=== PATIENT | male | born 1980 | race Caucasian/White ===

== ENCOUNTER 2017-05-06 12:35 | Emergency (ER) | payer MEDICAID ==
[2017-05-06 12:44] VITALS: RESP 16; TEMP 97.9
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
[2017-05-06 14:01] VITALS: BP 132/80; PULSE 70; O2SAT 94
== END 2017-05-06 14:00 | disposition home or self-care (01) ==
DX: S69.91XA Unspecified injury of right wrist, hand and finger(s), initial encounter (principal); W22.8XXA Striking against or struck by other objects, initial encounter; F17.200 Nicotine dependence, unspecified, uncomplicated
CPT/HCPCS: L3908

== ENCOUNTER 2017-11-15 23:52 | Emergency (ER) | payer MEDICAID ==
[2017-11-16 00:01] VITALS: BP 135/84
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
[2017-11-16] MEDS ORDERED: AZITHROMYCIN 250 MG TAB PO ONE (00:20)
== END 2017-11-16 00:44 | disposition left against medical advice (07) ==
DX: J02.9 Acute pharyngitis, unspecified (principal); A64 Unspecified sexually transmitted disease; F17.200 Nicotine dependence, unspecified, uncomplicated
CPT/HCPCS: J0696

== ENCOUNTER 2018-02-01 19:04 | Observation (INO) | payer SELFPAY ==
[2018-02-01] MEDS ORDERED: LORazepam 2 MG/ML INJ IVP ONE (19:23)
--- NOTE | 2018-02-01 19:30 | EDPHY ---
H & P Stated Complaint: Epigastric Pain, PS? Time Seen by Provider: 02/01/18 19:14 HPI/ROS: CHIEF COMPLAINT: Vomiting, scant hematemesis HISTORY OF PRESENT ILLNESS: The patient is homeless presents the emergency department with vomiting and scant hematemesis. The patient denies melena. The patient does report using Adderall yesterday which is not prescribed to him. The patient is concerned about the possibility of a blood bite on his foot. The patient denies any headache. He denies history of fall or trauma. The patient denies any additional recreational drug use. The patient does report drinking a beer earlier today. The patient reports he had been on Seroquel and Prozac in the past. He is not taking these medications in months. His prior prior care was in [place]. The patient is endorsing some paranoid delusions that bugs are crawling in his veins. REVIEW OF SYSTEMS: A comprehensive 10 point review of systems is otherwise negative aside from elements mentioned in the history of present illness. Source: Patient - Personal History Current Tetanus/Diphtheria Vaccine: Yes Tetanus Vaccine Date: 2013 - Medical/Surgical History Hx Asthma: No Hx Chronic Respiratory Disease: No Hx Diabetes: No Hx Cardiac Disease: No Hx Renal Disease: No Hx Cirrhosis: No Hx Alcoholism: No Hx HIV/AIDS: No Hx Splenectomy or Spleen Trauma: No - Social History Smoking Status: Light smoker - Physical Exam Exam: General Appearance: Disheveled male, no acute distress Eyes: Pupils equal and round no pallor or injection ENT, Mouth: Mucous membranes moist Respiratory: There are no retractions, lungs are clear to auscultation Cardiovascular: Tachycardic Gastrointestinal: Abdomen is soft and nontender, no masses, bowel sounds normal Neurological: 5/5 strength all 4 extremities Skin: Blister noted to the dorsum of the left heel, noninfected Musculoskeletal: Neck is supple nontender Extremities: symmetrical, full range of motion Psychiatric: Hyper stimulated, paranoid, formication Constitutional: Initial Vital Signs Temperature (C) 36.7 C 02/01/18 19:14 Heart Rate 111 H 02/01/18 19:14 Respiratory Rate 24 H 02/01/18 19:14 Blood Pressure 142/117 H 02/01/18 19:14 O2 Sat (%) 98 02/01/18 19:14 O2 Delivery Mode Room Air Allergies/Adverse Reactions: No Known Allergies Allergy (Unverified 02/01/18 19:31) Home Medications: Medication Instructions Recorded NK [No Known Home Meds] 02/01/18 Medical Decision Making - Diagnostics EKG Interpretation: EKG: Complete interpretation has been separately recorded in the [facility] archive. Summary impression: Sinus rhythm, rate 97, nonspecific ST T wave changes noted ED Course/Re-evaluation: The patient presents to the ED with agitation. He is homeless. The patient reports abusing methamphetamine. After arriving in the emergency department he did admit to the nurse that he injected methamphetamine intravenously earlier today. He also used 4 days ago. The patient received 1 mg of Ativan. The patient received 2 L of normal saline. The patient received 10 mg of Zyprexa. Screening laboratory studies do demonstrate a creatinine of 3.8. The patient will require admission the hospital in the setting of his acute renal failure. He has no evidence of hyperkalemia or arrhythmia. Consultation is made with the hospitalist service. The patient will be admitted to the intensive care unit. The patient is noted to have an elevated CPK of 3000. Differential Diagnosis: Differential diagnosis considered includes rhabdomyolysis, hyperkalemia, renal failure, serotonin syndrome, methamphetamine intoxication Critical Care Time: Critical care time exclusive of procedures and exclusive of the PA's time was 35 minutes, performed by myself, Yadiel Castaneda MD. The patient presents to the ED with psychosis from methamphetamine, tachycardia, mild rhabdomyolysis, mild agitation and acute renal failure. The patient required IV fluid rehydration. He required IV Ativan and Zyprexa for his agitation and delusions. He will require admission to the intensive care unit for further stabilization - Data Points Laboratory Results: Laboratory Results 02/01/18 19:10 02/01/18 19:10 02/01/18 02/01/18 02/01/18 19:10 19:10 19:01 WBC 14.39 10^3/uL H 10^3/uL (3.80-9.50) RBC 5.92 10^6/uL 10^6/uL (4.40-6.38) Hgb 17.1 g/dL g/dL (13.7-17.5) Hct 48.5 % % (40.0-51.0) MCV 81.9 fL fL (81.5-99.8) MCH 28.9 pg pg (27.9-34.1) MCHC 35.3 g/dL g/dL (32.4-36.7) RDW 14.0 % % (11.5-15.2) Plt Count 235 10^3/uL 10^3/uL (150-400) MPV 11.9 fL H fL (8.7-11.7) Neut % (Auto) 77.8 % H % (39.3-74.2) Lymph % (Auto) 17.0 % % (15.0-45.0) [place] % (Auto) 4.4 % L % (4.5-13.0) Eos % (Auto) 0.1 % L % (0.6-7.6) Baso % (Auto) 0.2 % L % (0.3-1.7) Nucleat RBC Rel Count 0.0 % % (0.0-0.2) Absolute Neuts (auto) 11.20 10^3/uL H 10^3/uL (1.70-6.50) Absolute Lymphs (auto) 2.45 10^3/uL 10^3/uL (1.00-3.00) Absolute Monos (auto) 0.63 10^3/uL 10^3/uL (0.30-0.80) Absolute Eos (auto) 0.01 10^3/uL L 10^3/uL (0.03-0.40) Absolute Basos (auto) 0.03 10^3/uL 10^3/uL (0.02-0.10) Absolute Nucleated RBC 0.00 10^3/uL 10^3/uL (0-0.01) Immature Gran % 0.5 % % (0.0-1.1) Immature Gran # 0.07 10^3/uL 10^3/uL (0.00-0.10) Sodium 138 mEq/L mEq/L (135-145) Potassium 3.9 mEq/L mEq/L (3.3-5.0) Chloride 89 mEq/L L mEq/L (97-110) Carbon Dioxide 18 mEq/l L mEq/l (22-31) Anion Gap 31 mEq/L H mEq/L (8-16) BUN 67 mg/dL H mg/dL (7-23) Creatinine 3.8 mg/dL H mg/dL (0.7-1.3) Estimated GFR 18 Glucose 152 mg/dL H mg/dL (70-100) Calcium 10.3 mg/dL mg/dL (8.5-10.4) Creatine Kinase 3199 IU/L H IU/L (0-224) CK-MB (CK-2) Fraction 19.70 ng/mL H ng/mL (0.00-4.55) CK-MB (CK-2) % 0.6 % % (0.0-4.0) Creatine Kinase Interp NEGATIVE (NEGATIVE) Medications Given: Discontinued Medications Sodium Chloride (Ns) 1,000 mls @ 0 mls/hr IV EDNOW ONE; Wide Open PRN Reason: Protocol Stop: 02/01/18 19:40 Last Admin: 02/01/18 19:45 Dose: 1,000 mls Sodium Chloride (Ns) 1,000 mls @ 0 mls/hr IV EDNOW ONE; Wide Open PRN Reason: Protocol Stop: 02/01/18 19:40 Last Admin: 02/01/18 20:10 Dose: 1,000 mls Lorazepam (Ativan Injection) 1 mg IVP EDNOW ONE Stop: 02/01/18 19:24 Last Admin: 02/01/18 19:37 Dose: 1 mg Olanzapine (Zyprexa Zydis) 10 mg PO EDNOW ONE Stop: 02/01/18 20:05 Last Admin: 02/01/18 20:12 Dose: 10 mg Departure - Departure Disposition: [facility] Inpatient Acute Clinical Impression: Acute renal failure, Methamphetamine abuse, Drug-induced psychotic disorder, Rhabdomyolysis Condition: Fair
[2018-02-01 19:33] LABS: PLATELET COUNT 235 10^3/uL (150-400)
[2018-02-01] MEDS ORDERED: NS 1,000 ML IV ONE ×2 (19:39)
[2018-02-01] MEDS ORDERED: OLANZapine DISINTEGR 10 MG TAB PO ONE (20:04)
--- NOTE | 2018-02-01 20:16 | CPEKG ---
Heart Rate: 97 RR Interval: 619 P-R Interval: 140 QRSD Interval: 98 QT Interval: 364 QTC Interval: 463 P [place]: 75 QRS [place]: 100 T Wave [place]: -31 EKG Severity - ABNORMAL ECG - EKG Impression: SINUS RHYTHM EKG Impression: PROBABLE LEFT ATRIAL ABNORMALITY EKG Impression: NONSPECIFIC T ABNORMALITIES, INFERIOR LEADS EKG Impression: INCOMPLETE RIGHT BUNDLE BRANCH BLOCK EKG Impression: RIGHT AXIS DEVIATION Electronically Signed By: Edwin Meehan 02-Feb-2018 12:15:03
[2018-02-01 20:37] LABS: CREATINE KINASE 3199 IU/L (0-224)
[2018-02-01] MEDS ORDERED: ONDANSETRON DISINTEGRATING 4 MG TAB PO PRN (20:48)
[2018-02-01] MEDS ORDERED: ONDANSETRON 4 MG/2 ML VIAL IVP PRN (20:48)
[2018-02-01] MEDS ORDERED: ACETAMINOPHEN 325 MG TAB PO PRN (20:48)
[2018-02-01] MEDS ORDERED: HALOPERIDOL LACT 5 MG/ML INJ IVP PRN (20:49)
[2018-02-01] MEDS ORDERED: LORazepam 2 MG/ML INJ IVP PRN (20:49)
[2018-02-01] MEDS ORDERED: OLANZapine DISINTEGR 5 MG TAB PO PRN (22:24)
[2018-02-01] MEDS ORDERED: NS 1,000 ML IV SCH (22:30)
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
[2018-02-02] MEDS ORDERED: CETIRIZINE 10 MG TAB PO SCH (09:45)
[2018-02-02 09:51] LABS: PLATELET COUNT 141 10^3/uL (150-400)
[2018-02-02] MEDS ORDERED: PANTOPRAZOLE SODIUM 40 MG TAB PO SCH (10:00)
[2018-02-02 10:13] LABS: CREATINE KINASE 2231 IU/L (0-224)
[2018-02-02 11:44] VITALS: BP 108/68
--- NOTE | 2018-02-02 14:07 | PDDCSUM ---
Discharge Summary Discharge Summary: 34 yo male who was admitted for acute encephalopathy, dehydration, SOLE following Meth Intoxication. He was admitted into the SDU. He was given IVF and appropriate medical mgmt. He was improving in the morning of discharge but still with e/o of dehydration. IVF were continued. He requested discharge midway through the day. A new set of labs were obtained to determine improvement. However, he left AMA prior to return of the labs. NO new medications were provided. No f/u's were scheduled. DDx -Encephalopathy, resolved -Dehydration, persistent -SOLE, improving -polysubstance abuse -Homelessness -rhabdo, improving exam: MM DRY RRR CTA B S//NT/ND NO LE EDEMA TOTAL TIME SPENT ON D/C IS 40 MINUTES
[2018-02-02 14:46] LABS: CREATINE KINASE 2242 IU/L (0-224)
[2018-02-02] MEDS ORDERED: QUEtiapine FUMARATE 100 MG TAB PO SCH (21:00)
== END 2018-02-02 14:06 | disposition left against medical advice (07) ==
LOC: EDBD → MERGE 20:26 → INTOOBSV 20:26 → F2N 21:29 → F3E 02-02 11:37
PROVIDERS: ADMIT Internal Medicine; ATTEND Internal Medicine
DX: K92.0 Hematemesis (principal); E86.0 Dehydration; Z59.0 Homelessness; Z53.21 Procedure and treatment not carried out due to patient leaving prior to being seen by health care provider
CPT/HCPCS: 80305; 96374; G0378; G0480; J2060

== ENCOUNTER 2018-02-03 22:30 | Emergency (ER) | payer SELFPAY ==
[2018-02-03] MEDS ORDERED: NS 1,000 ML IV ONE ×2 (22:55→22:59)
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
[2018-02-03] MEDS ORDERED: LORazepam 2 MG/ML INJ IVP ONE (23:06)
[2018-02-03 23:20] LABS: PLATELET COUNT 147 10^3/uL (150-400)
[2018-02-03 23:38] LABS: CREATINE KINASE 2081 IU/L (0-224)
[2018-02-04 01:08] VITALS: BP 117/71
== END 2018-02-04 01:10 | disposition home or self-care (01) ==
LOC: EDBD → MERGE 22:30
DX: M62.82 Rhabdomyolysis (principal); F17.200 Nicotine dependence, unspecified, uncomplicated; F15.10 Other stimulant abuse, uncomplicated
CPT/HCPCS: 96374; J2060